=== PATIENT | male | born 1945 | race Caucasian/White ===

== ENCOUNTER 2018-03-16 10:06 | Day surgery (SDC) | payer MEDICARE, BC ==
[~2018-03-16] VITALS: Ht 190.5 cm; Wt 84.0 kg
[2018-03-16] MEDS ORDERED: LISI20 (10:55)
[2018-03-16] MEDS ORDERED: Tambocor100 MG (10:55)
[2018-03-16] MEDS ORDERED: WARF5 (10:56)
[2018-03-16] MEDS ORDERED: NEBI10 (10:56)
[2018-03-16] MEDS ORDERED: SIMV40 (10:56)
--- NOTE | 2018-03-16 11:00 | NUR ---
03/16/18 1100 Vandana Castro 1 IV MISS IN RH BY JIL VALVE 1 MISSED IV IN RAC INFILTRATED 1 MISSED IV IN LH BY RN VALVE 1 GOOD IV IN LAC BY RN PT TOW
== END 2018-03-16 13:35 | disposition home or self-care (01) ==
LOC: ORSCSDS 10:06
PROVIDERS: Internal Medicine Gastroenterology
PROC: 0DBN8ZX Excision of Sigmoid Colon, Via Natural or Artificial Opening Endoscopic, Diagnostic (ICD-10-PCS; principal; 2018-03-16 11:30)
DX: Z12.11 Encounter for screening for malignant neoplasm of colon (principal); D12.5 Benign neoplasm of sigmoid colon; K57.30 Diverticulosis of large intestine without perforation or abscess without bleeding; I10 Essential (primary) hypertension; E78.5 Hyperlipidemia, unspecified; I48.0 Paroxysmal atrial fibrillation; Z86.73 Personal history of transient ischemic attack (TIA), and cerebral infarction without residual deficits; Z79.01 Long term (current) use of anticoagulants; Z79.899 Other long term (current) drug therapy
CPT/HCPCS: 88305; J7120

== ENCOUNTER 2018-12-07 07:11 | Day surgery (SDC) | payer MEDICARE, BC ==
[~2018-12-07] VITALS: Ht 190.5 cm; Wt 82.3 kg
[~2018-12-07 07:11] MED LIST: Flecainide Ace150 MG PO; LISI20; Levitra20 MG; NEBI10; Prinivil10 MG PO; SIMV40; Simvastatin40 MG PO; Tambocor100 MG; WARF5; WARF5 PO
[2018-12-07] MEDS ORDERED: METO25ER (08:01)
--- NOTE | 2018-12-07 09:40 | NUR ---
12/07/18 0940 Shanon Clinton PT. INSTRUCTED ON HAVING A CLIP IN HIS COLON. PT. TO RESUME HIS COUMADIN DIRECTIONS AT HOME, JUST NOT TODAY. PT. VERBALIZES FEELING A LITTLE LIGHTHEADED. PT. INSTRUCTED THAT HE MAY FEEL THAT WAY BUT WILL GET BETTER THE DAY GOES ON. IT WAS THE PROPOFOL THAT WAS GIVEN.
== END 2018-12-07 09:40 | disposition home or self-care (01) ==
LOC: ORSCSDS 07:11
PROVIDERS: Internal Medicine Gastroenterology
PROC: 0DBN8ZX Excision of Sigmoid Colon, Via Natural or Artificial Opening Endoscopic, Diagnostic (ICD-10-PCS; principal; 2018-12-07 08:30)
DX: Z12.11 Encounter for screening for malignant neoplasm of colon (principal); Z86.010 Personal history of colon polyps; D12.5 Benign neoplasm of sigmoid colon; K62.89 Other specified diseases of anus and rectum; I48.91 Unspecified atrial fibrillation; I10 Essential (primary) hypertension; Z79.01 Long term (current) use of anticoagulants; Z79.899 Other long term (current) drug therapy
CPT/HCPCS: 88305; J2704; J7120

== ENCOUNTER → 2019-01-06 | Outpatient (CLI) | payer MEDICARE, BC ==
[~2019-01-06] MED LIST changes: +METO25ER
== END | disposition home or self-care (01) ==
LOC: LAB SHORT 11:51 → PLD 11:51
DX: D22.4 Melanocytic nevi of scalp and neck (principal); L57.8 Other skin changes due to chronic exposure to nonionizing radiation
CPT/HCPCS: 88305; 88342

== ENCOUNTER → 2019-08-08 | Outpatient (CLI) | payer MEDICARE, BC | END | disposition home or self-care (01) | LOC: PLD 07:42 → LAB SHORT 07:42 | DX: C44.529 Squamous cell carcinoma of skin of other part of trunk (principal) | CPT/HCPCS: 88305 ==

== ENCOUNTER → 2019-09-13 | Outpatient (CLI) | payer MEDICARE, BC | END | disposition home or self-care (01) | LOC: LAB SHORT 14:35 → PLD 14:35 | DX: L81.4 Other melanin hyperpigmentation (principal) | CPT/HCPCS: 88305 ==

== ENCOUNTER → 2019-12-07 | Outpatient (CLI) | payer MEDICARE, BC | END | disposition home or self-care (01) | LOC: LAB SHORT 12:20 → PLD 12:20 | DX: C44.629 Squamous cell carcinoma of skin of left upper limb, including shoulder (principal) | CPT/HCPCS: 88305 ==

== ENCOUNTER → 2020-01-09 | Outpatient (CLI) | payer MEDICARE, BC | END | disposition home or self-care (01) | LOC: LAB SHORT 07:28 → LAB 07:28 | DX: L57.0 Actinic keratosis (principal) | CPT/HCPCS: 88305 ==

== ENCOUNTER → 2021-10-14 | Outpatient (CLI) | payer MEDICARE, BC ==
[2021-10-14 12:57] LABS: Microalb/Creat Ratio UR, Rand Unable to Calculate mg/g (0.000-30.000); Microalbumin, Random Urine <5.000 mg/L (0.000-20.000)
== END | disposition home or self-care (01) ==
LOC: LAB 07:00 → LAB SHORT 07:00
PROVIDERS: Family Medicine
DX: R94.4 Abnormal results of kidney function studies (principal)
CPT/HCPCS: 82043; 82570

== ENCOUNTER → 2022-05-06 | Outpatient (CLI) | payer MEDICARE, BC | END | disposition home or self-care (01) | LOC: LAB SHORT 11:20 → LAB 11:20 | DX: D04.62 Carcinoma in situ of skin of left upper limb, including shoulder (principal); C44.41 Basal cell carcinoma of skin of scalp and neck | CPT/HCPCS: 88305 ==

== ENCOUNTER → 2023-06-11 | Outpatient (CLI) | payer OTHER, BC | LOC: LAB 10:38 → LAB SHORT 10:38 | DX: L57.0 Actinic keratosis (principal) | CPT/HCPCS: 88305 ==

== ENCOUNTER 2023-12-30 09:42 | Day surgery (SDC) | payer OTHER ==
[~2023-12-30] VITALS: Ht 190.5 cm; Wt 78.1 kg
[~2023-12-30 09:42] MED LIST changes: +Lactated Ringer's 1,000 ML IV ONE; +propofoL 50 ML IV ONE
[2023-12-30] MEDS ORDERED: ELIQUIS5 M2 (10:35)
[2023-12-30] MEDS ORDERED: Lactated Ringer's 1,000 ML IV ONE (11:30)
[2023-12-30 12:52] VITALS: BP 127/78
== END 2023-12-30 12:57 | disposition home or self-care (01) ==
LOC: ORSCSDS 09:42
PROVIDERS: Specialist
PROC: 0DJD8ZZ Inspection of Lower Intestinal Tract, Via Natural or Artificial Opening Endoscopic (ICD-10-PCS; principal; 2023-12-30 11:15)
DX: Z12.11 Encounter for screening for malignant neoplasm of colon (principal); K64.8 Other hemorrhoids; K57.30 Diverticulosis of large intestine without perforation or abscess without bleeding; K63.89 Other specified diseases of intestine; Z86.0101 Personal history of adenomatous and serrated colon polyps; R13.10 Dysphagia, unspecified; I48.91 Unspecified atrial fibrillation; G47.33 Obstructive sleep apnea (adult) (pediatric); Z85.46 Personal history of malignant neoplasm of prostate; Z86.73 Personal history of transient ischemic attack (TIA), and cerebral infarction without residual deficits; Z79.01 Long term (current) use of anticoagulants; Z79.899 Other long term (current) drug therapy
CPT/HCPCS: J2704; J7120